=== PATIENT | female | born 1965 | race African-American/Black ===

== ENCOUNTER 2018-09-23 09:37 | Day surgery (SDC) | payer OTHER ==
[~2018-09-23] VITALS: Ht 170.2 cm; Wt 91.6 kg
[~2018-09-23 09:37] MED LIST: AMLO10TA4; BENA20TA77; CLOP75TA16; HCTZ PO; METO50TA95 PO; SIMV20TA2; VALS320T2 PO
[2018-09-23] MEDS ORDERED: NITROGLYCERIN 50MCG/ML 10ML VIAL (CATH LAB) IV ONE (10:11)
[2018-09-23] MEDS ORDERED: HEPARIN SODIUM 1,000 UNIT/1ML VIAL IV ONE (10:11)
[2018-09-23] MEDS ORDERED: NICARDIPINE 100MCG/ML 10ML VIAL (CATH LAB) IV ONE (10:11)
[2018-09-23] MEDS ORDERED: ASPI-1159 MT (10:12)
[2018-09-23] MEDS ORDERED: DIPHENHYDRAMINE 50MG/ML VIAL ONE (10:45)
[2018-09-23] MEDS ORDERED: MIDAZOLAM HCL 2 MG/2 ML VIAL ONE (10:45)
[2018-09-23] MEDS ORDERED: HYDROCORTISONE SOD SUCCINATE 250 MG/2 ML VIAL ONE (10:45)
[2018-09-23] MEDS ORDERED: FENTANYL CITRATE/PF 50MCG/ML 2ML VIAL ONE (10:46)
[2018-09-23] MEDS ORDERED: IODIXANOL 320MG/ML 100 ML BOTTLE IV ONE (10:46)
[2018-09-23] MEDS ORDERED: LIDOCAINE HCL 1% 20ML VIAL (Pyxis) INJ ONE (10:46)
[2018-09-23] MEDS ORDERED: FAMOTIDINE 20MG/2ML VIAL IV ONE (10:47)
== END 2018-09-23 17:10 | disposition home or self-care (01) ==
LOC: CCL 09:37
PROVIDERS: ATTEND Specialist
DX: I25.10 Atherosclerotic heart disease of native coronary artery without angina pectoris (principal); I10 Essential (primary) hypertension; E78.5 Hyperlipidemia, unspecified; Z87.891 Personal history of nicotine dependence
CPT/HCPCS: 93458; 99152; 99153; C1769; C1887; C1893; J1200; J1644; J1720; J2250; J3010; J3490; Q9967; G0500

== ENCOUNTER 2018-09-28 15:49 | Inpatient (IN) | payer OTHER ==
[~2018-09-28] VITALS: Ht 170.2 cm; Wt 102.1 kg
[~2018-09-28 15:49] MED LIST changes: +ASPI-1159 MT; -SIMV20TA2
[2018-09-28] MEDS ORDERED: ENOXAPARIN 80MG/0.8ML SYR SUBCUT ONE (17:15)
[2018-09-28] MEDS ORDERED: ASPIRIN 81MG TABLET PO NR (17:22)
[2018-09-28] MEDS ORDERED: MORPHINE SULFATE 4 MG/ML CPJ (NOT FOR IM USE) IV NR (17:23)
[2018-09-28] MEDS ORDERED: NITROGLYCERIN OINT 1GM/INCH UDPKT TD NR (17:24)
[2018-09-28 17:50] LABS: EOSINOPHILS % 4.3 % (0.0-5.0); HEMOGLOBIN. 13.9 g/dL (12.0-16.0); LYMPHOCYTES % 37.7 % (20.0-50.0); MEAN CORPUSCULAR VOLUME 85.4 fL (81.0-99.0); MEAN PLATELET VOLUME 9.2 fl (7.4-10.4); MONOCYTES % 7.1 % (2.0-8.0); NEUTROPHILS % 49.9 % (40.0-76.0); PLATELET 261 x1000/uL (130-400); RED BLOOD CELL COUNT 4.81 mill/uL (4.2-5.4); RED CELL DISTRIBUTION WIDTH 13.9 % (11.6-14.6)
[2018-09-28 17:53] LABS: CHLORIDE 104 mEq/L (98-107)
[2018-09-28 17:56] LABS: INR 0.9; PARTIAL THROMBOPLASTIN TIME 29.7 sec (23.4-31.0); PROTHROMBIN TIME 9.7 sec (9.6-11.0)
[2018-09-28] MEDS ORDERED: ACETAMINOPHEN 325MG TABLET PO PRN (19:30)
[2018-09-28] MEDS ORDERED: ALPRAZOLAM 0.25 MG TABLET PO PRN (19:30)
[2018-09-28] MEDS ORDERED: NITROGLYCERIN 0.4MG TABLET SL SL PRN (19:30)
[2018-09-28] MEDS ORDERED: ENOXAPARIN 100MG/ML SYR SUBCUT NR (20:00)
[2018-09-28] MEDS ORDERED: BISACODYL 10MG SUPP PR PRN (21:00)
[2018-09-28] MEDS ORDERED: DIPHENHYDRAMINE 25MG CAPSULE PO PRN (21:00)
[2018-09-28 23:00] VITALS: BP 140/74
[2018-09-28] MEDS ORDERED: DOCUSATE SODIUM 100MG CAPSULE PO SCH (23:30)
[2018-09-28] MEDS ORDERED: ASCORBIC ACID 500 MG TABLET PO NR (23:30)
[2018-09-29] VITALS (39 sets, daily range): BP systolic 73–159; BP diastolic 43–96
[2018-09-29] MEDS: ALLOPURINOL 300 MG TABLET PO SCH ×2 (00:05→05:25)
[2018-09-29] MEDS ORDERED: DEL NIDO ELECTROLYTE-S(PH 7.4) 1,000 ML IV PRN ×2 (00:15→06:00)
[2018-09-29 03:15] LABS: CLARITY URINE CLEAR (CLEAR); COLOR URINE YELLOW (YELLOW); KETONES URINE NEGATIVE (NEGATIVE); LEUKOCYTE ESTERASE URINE NEGATIVE (NEGATIVE); NITRITE URINE NEGATIVE (NEGATIVE); OCCULT BLOOD URINE NEGATIVE (NEGATIVE); PROTEIN URINE NEGATIVE (NEGATIVE); SPECIFIC GRAVITY URINE 1.011 (1.005-1.030); UROBILINOGEN URINE 0.2 E.U./dL (0.2-1.0)
[2018-09-29 04:21] LABS: BASOPHILS % 0.6 % (0.0-2.0); EOSINOPHILS % 4.1 % (0.0-5.0); HEMATOCRIT. 37.1 % (36.0-48.0); HEMOGLOBIN. 12.4 g/dL (12.0-16.0); LYMPHOCYTES % 36.4 % (20.0-50.0); MEAN CORPUSCULAR HEMOGLOBIN 28.6 pg (28.0-32.0); MEAN CORPUSCULAR VOLUME 85.7 fL (81.0-99.0); MEAN PLATELET VOLUME 9.4 fl (7.4-10.4); MONOCYTES % 7.8 % (2.0-8.0); NEUTROPHILS % 51.1 % (40.0-76.0); PLATELET 238 x1000/uL (130-400); RED BLOOD CELL COUNT 4.33 mill/uL (4.2-5.4); RED CELL DISTRIBUTION WIDTH 14.1 % (11.6-14.6)
[2018-09-29 04:28] LABS: CHLORIDE 104 mEq/L (98-107)
[2018-09-29 04:31] LABS: PROTHROMBIN TIME 10.2 sec (9.6-11.0)
[2018-09-29] MEDS ORDERED: POTASSIUM CHLORIDE INJ 40 MEQ in DEXT 5% WATER 250 ML IV NR (05:00)
[2018-09-29] MEDS ORDERED: CHLORHEXIDINE GLUCONATE 4% EXTERNAL USE TOP SCH ×2 (05:00)
[2018-09-29] MEDS ORDERED: ONDANSETRON HCL 4MG/2ML INJ IV PRN (05:00)
[2018-09-29] MEDS ORDERED: INSULIN REGULAR (DRIP) 100 UNITS in SODIUM CHLORIDE 0.9% 99 ML IV PRN (06:00)
[2018-09-29] MEDS ORDERED: EPINEPHRINE 4 MG in DEXT 5% WATER 246 ML IV PRN (06:00)
[2018-09-29] MEDS ORDERED: DOBUTAMINE HCL 250 MG in DEXT 5% WATER 230 ML IV PRN (06:00)
[2018-09-29] MEDS ORDERED: AMINOCAPROIC ACID 10,000 MG in SODIUM CHLORIDE 0.9% 460 ML IV PRN (06:00)
[2018-09-29] MEDS ORDERED: NICARDIPINE 40MG/200ML PREMIX 200 ML IV PRN (06:00)
[2018-09-29] MEDS ORDERED: CEFAZOLIN 2,000 MG in DEXT 5% WATER 100 ML IV PRN (06:00)
[2018-09-29] MEDS ORDERED: NOREPINEPHRINE 4 MG in DEXT 5% WATER 246 ML IV PRN (06:00)
[2018-09-29] MEDS ORDERED: PAPAVERINE HCL 180MG in SODIUM CHLORIDE 0.9% 24ML IV PRN (06:00)
[2018-09-29] MEDS ORDERED: AMINOCAPROIC ACID 250 MG/ML 20ML VIAL ONE ×2 (06:05→08:58)
[2018-09-29] MEDS ORDERED: POTASSIUM CHLORIDE 40MEQ/20ML INJ IV ONE (06:05)
[2018-09-29] MEDS ORDERED: ALBUMIN HUMAN 25GM/100ML (25%) IV ONE (06:06)
[2018-09-29] MEDS ORDERED: CALCIUM CHLORIDE 1GM/10ML SYR IV ONE ×2 (06:06→15:00)
[2018-09-29] MEDS ORDERED: HEPARIN 10,000 UNITS/ML VIAL ONE ×2 (06:07→06:08)
[2018-09-29] MEDS ORDERED: MANNITOL 20% 500 ML IV ONE (06:07)
[2018-09-29] MEDS ORDERED: HEPARIN 1000 UNITS/ML 10ML ONE ×3 (06:09→06:28)
[2018-09-29] MEDS ORDERED: SODIUM BICARBONATE 8.4% 1 MEQ/ML 50ML SYR IV ONE ×2 (06:20→15:01)
[2018-09-29] MEDS ORDERED: THROMBIN (BOVINE) 5000 UNITS/VIAL TOP ONE (06:26)
[2018-09-29] MEDS ORDERED: NORMAL SALINE 0.9% 10 ML SYR ONE (06:26)
[2018-09-29] MEDS ORDERED: METHYLENE BLUE 50 MG/10 ML AMP IV ONE (06:26)
[2018-09-29] MEDS ORDERED: BACITRACIN 50,000 UNITS/VIAL ONE (06:27)
[2018-09-29] MEDS ORDERED: NITROGLYCERIN 50MG PREMIX 250 ML IV ONE (06:28)
[2018-09-29] MEDS ORDERED: DOPAMINE 400MG/250ML PREMIX 250 ML IV ONE (06:28)
[2018-09-29] MEDS ORDERED: SEVOFLURANE 250 ML LIQUID INH ONE (06:28)
[2018-09-29] MEDS ORDERED: DOBUTAMINE 250MG PREMIX 250 ML IV ONE (06:28)
[2018-09-29] MEDS ORDERED: MILRINONE 20MG-DEXT 5% PREMIX 100 ML IV ONE ×2 (06:29→13:35)
[2018-09-29] MEDS ORDERED: BACITRACIN 15GM TUBE TOP ONE (06:30)
[2018-09-29] MEDS ORDERED: MIDAZOLAM HCL 2 MG/2 ML VIAL ONE (06:38)
[2018-09-29] MEDS ORDERED: ROCURONIUM BROMIDE 10MG/ML VIAL 5ML IV ONE ×2 (06:39→06:40)
[2018-09-29] MEDS ORDERED: PROPOFOL 10MG/ML 100ML 100 ML IV ONE (06:39)
[2018-09-29] MEDS ORDERED: PHENYLEPHRINE 10MG in DEXT 5% WATER 250ML IV ONE (06:45)
[2018-09-29] MEDS ORDERED: SUCCINYLCHOLINE CHLORIDE 200MG/10ML IV ONE (06:48)
[2018-09-29] MEDS ORDERED: MAGNESIUM SULFATE 5GM/10ML VIAL IV ONE (07:55)
[2018-09-29] MEDS ORDERED: LIDOCAINE HCL 2% 5ML SYRINGE IV ONE (08:09)
[2018-09-29] MEDS ORDERED: ESMOLOL 2500MG PREMIX 250 ML IV ONE (08:18)
[2018-09-29] MEDS ORDERED: FENTANYL CITRATE/PF 50MCG/ML 5ML VIAL ONE ×2 (08:19→09:36)
[2018-09-29] MEDS ORDERED: CEFAZOLIN SODIUM 1000MG/VIAL ONE (08:57)
[2018-09-29] MEDS ORDERED: DIPHENHYDRAMINE 50MG/ML VIAL ONE (09:05)
[2018-09-29] MEDS ORDERED: DEXAMETHASONE 4MG/ML 1ML VIAL ONE (09:25)
[2018-09-29] MEDS ORDERED: PROTAMINE SULFATE 10MG/ML VIAL 25ML IV ONE (09:31)
[2018-09-29] MEDS ORDERED: AMIODARONE HCL 50MG/ML 3ML VIAL IV ONE (10:54)
[2018-09-29 13:40] LABS: MEAN CORPUSCULAR HEMOGLOBIN 28.7 pg (28.0-32.0); MEAN CORPUSCULAR VOLUME 86.9 fL (81.0-99.0); MEAN PLATELET VOLUME 8.7 fl (7.4-10.4); PLATELET 104 x1000/uL (130-400); RED BLOOD CELL COUNT 2.38 mill/uL (4.2-5.4); RED CELL DISTRIBUTION WIDTH 14.1 % (11.6-14.6)
[2018-09-29 13:47] LABS: CHLORIDE 107 mEq/L (98-107)
[2018-09-29 13:49] LABS: INR 1.4; PARTIAL THROMBOPLASTIN TIME 34.7 sec (23.4-31.0); PROTHROMBIN TIME 14.1 sec (9.6-11.0)
[2018-09-29 13:52] LABS: PHOSPHORUS 2.4 mg/dL (2.5-4.9)
[2018-09-29 13:57] LABS: HEMATOCRIT. 20.7 % (36.0-48.0); HEMOGLOBIN. 6.8 g/dL (12.0-16.0)
[2018-09-29 14:19] LABS: PLATELET ESTIMATE SLIGHTLY DECREASED
[2018-09-29 14:28] LABS: BASOPHILS % 0.4 % (0.0-2.0); EOSINOPHILS % 0.6 % (0.0-5.0); HEMATOCRIT. 22.8 % (36.0-48.0); HEMOGLOBIN. 7.5 g/dL (12.0-16.0); LYMPHOCYTES % 9.4 % (20.0-50.0); MEAN CORPUSCULAR HEMOGLOBIN 28.5 pg (28.0-32.0); MEAN CORPUSCULAR VOLUME 87.1 fL (81.0-99.0); MEAN PLATELET VOLUME 9.2 fl (7.4-10.4); MONOCYTES % 4.7 % (2.0-8.0); NEUTROPHILS % 84.9 % (40.0-76.0); PLATELET 143 x1000/uL (130-400); RED BLOOD CELL COUNT 2.62 mill/uL (4.2-5.4)
[2018-09-29] MEDS ORDERED: ATROPINE SULFATE 1MG/10ML SYR ONE (14:48)
[2018-09-29] MEDS ORDERED: ALBUTEROL 90MCG/PUFF 17GM INHALER INH ONE (14:50)
[2018-09-29] MEDS ORDERED: SODIUM CHLORIDE 0.9% 500 ML IV PRN (15:22)
[2018-09-29] MEDS ORDERED: NOREPINEPHRINE 4 MG in DEXT 5% WATER 250 ML IV PRN (15:22)
[2018-09-29] MEDS ORDERED: DOPAMINE 400MG/250ML PREMIX 250 ML IV SCH (15:22)
[2018-09-29] MEDS ORDERED: CALCIUM CHLORIDE 5,000 MG in DEXT 5% WATER 500 ML IV PRN (15:30)
[2018-09-29] MEDS ORDERED: OXYCODONE HCL/ACETAMINOPHEN 5/325MG TABLET PO PRN (15:30)
[2018-09-29] MEDS ORDERED: ALBUMIN HUMAN 12.5G/250ML (5%) IV PRN (15:30)
[2018-09-29] MEDS ORDERED: MILRINONE 20MG-DEXT 5% PREMIX 100 ML IV SCH (16:00)
[2018-09-29] MEDS: MAGNESIUM HYDROXIDE 400MG/5ML 30ML UDC PO SCH ×3 (16:00→23:03)
[2018-09-29] MEDS ORDERED: FENTANYL CITRATE/PF 50MCG/ML 2ML VIAL ONE (16:19)
[2018-09-29 16:21] LABS: BG BASE EXCESS -5.1 mmol/L (-2.0-2.0); BG CARBOXYHEMOGLOBIN 0.3 % (0.5-1.5); BG DEOXYHEMOGLOBIN 2.8 % (0.0-5.0); BG FRACTION INSPIRED OXYGEN 100; BG HCO3 ACT 21.3 mmol/L (22.0-26.0); BG METHEMOGLOBIN 0.5 % (0.0-1.5); BG OXYGEN SATURATION 97.2 % (92.0-98.5); BG OXYHEMOGLOBIN 96.4 % (94.0-97.0); BG PCO2 45.2 mmHg (35.0-45.0); BG PH 7.291 (7.350-7.450); BG PO2 118.2 mmHg (75.0-100.0); BG SAMPLE SITE A-LINE; BG TIDAL VOLUME(mL) 600 mL; BG TOTAL HEMOGLOBIN 10.1 g/dL (12.0-18.0); BG VENT MODE VENT - A/C; BG VENT RATE 12 set
[2018-09-29] MEDS: BACITRACIN 15GM TUBE TOP SCH (16:26)
[2018-09-29] MEDS: DOCUSATE SODIUM 100MG CAPSULE PO SCH (16:26)
[2018-09-29] MEDS: IPRATROPIUM/ALBUTEROL 0.5-3(2.5)MG/3ML NEB HHN SCH ×3 (16:28→23:35)
[2018-09-29] MEDS: DEXT 5%/0.45% NACL 1000ML 1,000 ML IV SCH (16:28)
[2018-09-29] MEDS: FENTANYL CITRATE/PF 50MCG/ML 2ML VIAL IV PRN ×3 (16:29→22:23)
[2018-09-29] MEDS ORDERED: ALBUMIN HUMAN 12.5G/250ML (5%) IV ONE (16:30)
[2018-09-29] MEDS ORDERED: CEFAZOLIN 1000MG/50ML PREMIX IV ONE (16:30)
[2018-09-29] MEDS ORDERED: POTASSIUM CHLORIDE 10MEQ IN WATER 50ML PREMIX IV ONE (16:30)
[2018-09-29] MEDS ORDERED: MAGNESIUM SULFATE 1G IN DEXT 5% 100ML PREMIX IV ONE (16:30)
[2018-09-29] MEDS ORDERED: SODIUM BICARBONATE 8.4% 1 MEQ/ML 50ML SYR IV NR ×3 (16:45→21:15)
[2018-09-29] MEDS: CEFAZOLIN 1000MG PREMIX 50 ML IV SCH (17:00)
[2018-09-29 17:22] LABS: BASOPHILS % 0.2 % (0.0-2.0); EOSINOPHILS % 0.1 % (0.0-5.0); HEMATOCRIT. 29.7 % (36.0-48.0); LYMPHOCYTES % 12.9 % (20.0-50.0); MEAN CORPUSCULAR HEMOGLOBIN 29.1 pg (28.0-32.0); MEAN CORPUSCULAR VOLUME 86.8 fL (81.0-99.0); MEAN PLATELET VOLUME 9.3 fl (7.4-10.4); MONOCYTES % 4.8 % (2.0-8.0); PLATELET 152 x1000/uL (130-400); RED BLOOD CELL COUNT 3.42 mill/uL (4.2-5.4); RED CELL DISTRIBUTION WIDTH 14.7 % (11.6-14.6)
[2018-09-29 17:29] LABS: INR 1.1; PROTHROMBIN TIME 11.4 sec (9.6-11.0)
[2018-09-29] MEDS ORDERED: PROPOFOL 10MG/ML 100ML 100 ML IV PRN (17:30)
[2018-09-29 17:31] LABS: CHLORIDE 111 mEq/L (98-107)
[2018-09-29 17:31] LABS: BG BASE EXCESS -3.9 mmol/L (-2.0-2.0); BG CARBOXYHEMOGLOBIN 0.3 % (0.5-1.5); BG DEOXYHEMOGLOBIN 3.7 % (0.0-5.0); BG FRACTION INSPIRED OXYGEN 80; BG HCO3 ACT 21.7 mmol/L (22.0-26.0); BG OXYGEN SATURATION 96.3 % (92.0-98.5); BG PCO2 41.5 mmHg (35.0-45.0); BG PH 7.336 (7.350-7.450); BG PO2 93.9 mmHg (75.0-100.0); BG SAMPLE SITE A-LINE; BG TIDAL VOLUME(mL) 600 mL; BG TOTAL HEMOGLOBIN 11.2 g/dL (12.0-18.0); BG VENT MODE VENT - A/C; BG VENT RATE 12 set
[2018-09-29] MEDS ORDERED: INSULIN REGULAR (DRIP) 100 UNITS in SODIUM CHLORIDE 0.9% 100 ML IV SCH (18:36)
[2018-09-29] MEDS ORDERED: DEXTROSE 50% WATER 50ML SYRINGE IV PRN ×2 (18:45)
[2018-09-29] MEDS: BLOOD SUGAR DIAGNOSTIC STRIP TEST SCH ×5 (18:45→23:02)
[2018-09-29 19:01] LABS: BG BASE EXCESS -5.8 mmol/L (-2.0-2.0); BG CARBOXYHEMOGLOBIN 0.3 % (0.5-1.5); BG DEOXYHEMOGLOBIN 2.4 % (0.0-5.0); BG FRACTION INSPIRED OXYGEN 80; BG HCO3 ACT 19.2 mmol/L (22.0-26.0); BG METHEMOGLOBIN 0.3 % (0.0-1.5); BG OXYGEN SATURATION 97.6 % (92.0-98.5); BG PCO2 35.9 mmHg (35.0-45.0); BG PH 7.346 (7.350-7.450); BG PO2 112.6 mmHg (75.0-100.0); BG SAMPLE SITE A-LINE; BG TIDAL VOLUME(mL) 600 mL; BG TOTAL HEMOGLOBIN 11.1 g/dL (12.0-18.0); BG VENT MODE VENT - A/C; BG VENT RATE 12 set
[2018-09-29] MEDS ORDERED: KCL 10MEQ/50ML PREMIX 200 ML IV PRN (19:15)
[2018-09-29] MEDS ORDERED: KCL 10MEQ/50ML PREMIX 100 ML IV PRN (19:15)
[2018-09-29 20:38] LABS: BG BASE EXCESS -4.2 mmol/L (-2.0-2.0); BG CARBOXYHEMOGLOBIN 0.3 % (0.5-1.5); BG DEOXYHEMOGLOBIN 1.7 % (0.0-5.0); BG FRACTION INSPIRED OXYGEN 70; BG HCO3 ACT 20.4 mmol/L (22.0-26.0); BG METHEMOGLOBIN 0.6 % (0.0-1.5); BG OXYGEN SATURATION 98.3 % (92.0-98.5); BG OXYHEMOGLOBIN 97.4 % (94.0-97.0); BG PCO2 35.9 mmHg (35.0-45.0); BG PH 7.373 (7.350-7.450); BG PIP 28 cmH2O; BG PO2 170.3 mmHg (75.0-100.0); BG SAMPLE SITE A-LINE; BG TIDAL VOLUME(mL) 600 mL; BG TOTAL HEMOGLOBIN 10.6 g/dL (12.0-18.0); BG VENT MODE VENT - A/C; BG VENT RATE 12 set
[2018-09-29] MEDS: ACETAMINOPHEN 650MG/20.3ML UDC PO PRN (21:23)
[2018-09-29 21:31] LABS: HEMATOCRIT. 30.7 % (36.0-48.0); HEMOGLOBIN. 10.2 g/dL (12.0-16.0); MEAN CORPUSCULAR HEMOGLOBIN 28.9 pg (28.0-32.0); MEAN CORPUSCULAR VOLUME 86.8 fL (81.0-99.0); MEAN PLATELET VOLUME 9.8 fl (7.4-10.4); PLATELET 153 x1000/uL (130-400); RED BLOOD CELL COUNT 3.54 mill/uL (4.2-5.4); RED CELL DISTRIBUTION WIDTH 14.7 % (11.6-14.6)
[2018-09-29 21:34] LABS: PARTIAL THROMBOPLASTIN TIME 36.7 sec (23.4-31.0); PROTHROMBIN TIME 10.8 sec (9.6-11.0)
[2018-09-29 21:39] LABS: BG BASE EXCESS 0.3 mmol/L (-2.0-2.0); BG CARBOXYHEMOGLOBIN 0.3 % (0.5-1.5); BG DEOXYHEMOGLOBIN 1.9 % (0.0-5.0); BG FRACTION INSPIRED OXYGEN 60; BG HCO3 ACT 24.2 mmol/L (22.0-26.0); BG METHEMOGLOBIN 0.3 % (0.0-1.5); BG OXYGEN SATURATION 98.1 % (92.0-98.5); BG OXYHEMOGLOBIN 97.5 % (94.0-97.0); BG PCO2 36.4 mmHg (35.0-45.0); BG PH 7.441 (7.350-7.450); BG PIP 28 cmH2O; BG PO2 152.3 mmHg (75.0-100.0); BG SAMPLE SITE A-LINE; BG TIDAL VOLUME(mL) 600 mL; BG TOTAL HEMOGLOBIN 10.4 g/dL (12.0-18.0); BG VENT MODE VENT - A/C; BG VENT RATE 12 set
[2018-09-29 21:47] LABS: CHLORIDE 113 mEq/L (98-107)
[2018-09-29 22:13] LABS: PLATELET ESTIMATE NORMAL
[2018-09-29 22:35] LABS: BG BASE EXCESS 1.1 mmol/L (-2.0-2.0); BG CARBOXYHEMOGLOBIN 0.3 % (0.5-1.5); BG DEOXYHEMOGLOBIN 2.5 % (0.0-5.0); BG FRACTION INSPIRED OXYGEN 50; BG HCO3 ACT 25.6 mmol/L (22.0-26.0); BG METHEMOGLOBIN 0.3 % (0.0-1.5); BG OXYGEN SATURATION 97.5 % (92.0-98.5); BG OXYHEMOGLOBIN 96.9 % (94.0-97.0); BG PCO2 40.5 mmHg (35.0-45.0); BG PH 7.419 (7.350-7.450); BG PIP 28 cmH2O; BG PO2 112.5 mmHg (75.0-100.0); BG SAMPLE SITE A-LINE; BG TIDAL VOLUME(mL) 600 mL; BG TOTAL HEMOGLOBIN 10.7 g/dL (12.0-18.0); BG VENT MODE VENT - A/C; BG VENT RATE 12 set
[2018-09-29] MEDS: KCL 10MEQ/50ML PREMIX 150 ML IV PRN (23:14)
[2018-09-29] MEDS: MORPHINE SULFATE 4 MG/ML CPJ (NOT FOR IM USE) IV PRN (23:49)
[2018-09-30] VITALS (63 sets, daily range): BP systolic 47–189; BP diastolic 25–96
[2018-09-30] MEDS: BLOOD SUGAR DIAGNOSTIC STRIP TEST SCH ×23 (00:11→23:16)
[2018-09-30 00:27] LABS: HEMATOCRIT. 29.6 % (36.0-48.0); HEMOGLOBIN. 10.1 g/dL (12.0-16.0); MEAN CORPUSCULAR HEMOGLOBIN 29.1 pg (28.0-32.0); MEAN CORPUSCULAR VOLUME 85.6 fL (81.0-99.0); MEAN PLATELET VOLUME 9.1 fl (7.4-10.4); PLATELET 140 x1000/uL (130-400); RED BLOOD CELL COUNT 3.46 mill/uL (4.2-5.4); RED CELL DISTRIBUTION WIDTH 14.7 % (11.6-14.6)
[2018-09-30 00:29] LABS: CHLORIDE 115 mEq/L (98-107)
[2018-09-30 00:33] LABS: PARTIAL THROMBOPLASTIN TIME 30.3 sec (23.4-31.0); PROTHROMBIN TIME 10.7 sec (9.6-11.0)
[2018-09-30] MEDS ORDERED: KCL 10MEQ/50ML PREMIX 50 ML IV NR ×2 (00:45→06:00)
[2018-09-30 00:52] LABS: PLATELET ESTIMATE NORMAL
[2018-09-30] MEDS ORDERED: MAGNESIUM 1 G PREMIX 100 ML IV NR ×2 (01:00→02:00)
[2018-09-30] MEDS ORDERED: ALBUMIN HUMAN 12.5G/250ML (5%) IV NR (01:30)
[2018-09-30] MEDS ORDERED: KCL 20MEQ/100ML PREMIX 100 ML IV NR (02:00)
[2018-09-30] MEDS: CEFAZOLIN 1000MG PREMIX 50 ML IV SCH ×3 (02:10→17:20)
[2018-09-30] MEDS: INSULIN REGULAR (DRIP) 100 UNITS in SODIUM CHLORIDE 0.9% 99 ML IV SCH (02:23)
[2018-09-30] MEDS: FENTANYL CITRATE/PF 50MCG/ML 2ML VIAL IV PRN ×2 (03:09→09:52)
[2018-09-30] MEDS ORDERED: BLOOD SUGAR DIAGNOSTIC STRIP TEST SCH (04:00)
[2018-09-30] MEDS: MAGNESIUM HYDROXIDE 400MG/5ML 30ML UDC PO SCH ×4 (04:59→16:00)
[2018-09-30] MEDS: MORPHINE SULFATE 4 MG/ML CPJ (NOT FOR IM USE) IV PRN ×2 (05:00→07:26)
[2018-09-30 05:04] LABS: BG BASE EXCESS 3.2 mmol/L (-2.0-2.0); BG CARBOXYHEMOGLOBIN 0.3 % (0.5-1.5); BG DEOXYHEMOGLOBIN 3.2 % (0.0-5.0); BG FRACTION INSPIRED OXYGEN 40; BG HCO3 ACT 25.6 mmol/L (22.0-26.0); BG METHEMOGLOBIN 0.3 % (0.0-1.5); BG OXYGEN SATURATION 96.8 % (92.0-98.5); BG OXYHEMOGLOBIN 96.2 % (94.0-97.0); BG PCO2 31.5 mmHg (35.0-45.0); BG PH 7.528 (7.350-7.450); BG PIP 33 cmH2O; BG PO2 86.3 mmHg (75.0-100.0); BG SAMPLE SITE A-LINE; BG TIDAL VOLUME(mL) 600 mL; BG TOTAL HEMOGLOBIN 10.4 g/dL (12.0-18.0); BG VENT MODE VENT - A/C; BG VENT RATE 12 set
[2018-09-30 05:10] LABS: HEMOGLOBIN. 9.9 g/dL (12.0-16.0); LYMPHOCYTES % 8.2 % (20.0-50.0); MEAN CORPUSCULAR HEMOGLOBIN 29.1 pg (28.0-32.0); MEAN CORPUSCULAR VOLUME 85.3 fL (81.0-99.0); MEAN PLATELET VOLUME 9.3 fl (7.4-10.4); MONOCYTES % 8.7 % (2.0-8.0); NEUTROPHILS % 83.1 % (40.0-76.0); PLATELET 136 x1000/uL (130-400); RED BLOOD CELL COUNT 3.39 mill/uL (4.2-5.4); RED CELL DISTRIBUTION WIDTH 14.4 % (11.6-14.6)
[2018-09-30 05:12] LABS: CHLORIDE 113 mEq/L (98-107)
[2018-09-30 05:18] LABS: PHOSPHORUS 2.6 mg/dL (2.5-4.9)
[2018-09-30 05:19] LABS: LDL CHOLESTEROL 41 mg/dL (5-100)
[2018-09-30 05:20] LABS: HDL CHOLESTEROL 27 mg/dL (40-59)
[2018-09-30] MEDS ORDERED: MAGNESIUM 2 G PREMIX 50 ML IV NR (07:00)
[2018-09-30 07:16] LABS: BG BASE EXCESS 3.3 mmol/L (-2.0-2.0); BG CARBOXYHEMOGLOBIN 0.3 % (0.5-1.5); BG DEOXYHEMOGLOBIN 2.3 % (0.0-5.0); BG FRACTION INSPIRED OXYGEN 40; BG HCO3 ACT 26.5 mmol/L (22.0-26.0); BG METHEMOGLOBIN 0.2 % (0.0-1.5); BG OXYGEN SATURATION 97.7 % (92.0-98.5); BG OXYHEMOGLOBIN 97.2 % (94.0-97.0); BG PCO2 35.1 mmHg (35.0-45.0); BG PH 7.496 (7.350-7.450); BG PO2 112.7 mmHg (75.0-100.0); BG SAMPLE SITE A-LINE; BG TIDAL VOLUME(mL) 600 mL; BG TOTAL HEMOGLOBIN 9.9 g/dL (12.0-18.0); BG VENT MODE VENT - SIMV; BG VENT RATE 12 set
[2018-09-30] MEDS: KCL 10MEQ/50ML PREMIX 150 ML IV PRN ×2 (07:57→07:58)
[2018-09-30] MEDS: IPRATROPIUM/ALBUTEROL 0.5-3(2.5)MG/3ML NEB HHN SCH ×4 (07:58→21:31)
[2018-09-30] MEDS ORDERED: MAGNESIUM SULFATE 3 GM in DEXT 5% WATER 100 ML IV PRN (08:00)
[2018-09-30] MEDS ORDERED: MAGNESIUM 2 G PREMIX 50 ML IV PRN (08:00)
[2018-09-30] MEDS ORDERED: MAGNESIUM 1 G PREMIX 100 ML IV PRN (08:00)
[2018-09-30] MEDS: DEXT 5%/0.45% NACL 1000ML 1,000 ML IV SCH ×2 (08:02→16:50)
[2018-09-30] MEDS: DOCUSATE SODIUM 100MG CAPSULE PO SCH ×2 (09:00→17:20)
[2018-09-30] MEDS: BACITRACIN 15GM TUBE TOP SCH ×2 (09:00→17:00)
[2018-09-30 09:33] LABS: BG OXYGEN SATURATION 97.4 % (92.0-98.5)
[2018-09-30] MEDS ORDERED: RACEPINEPHRINE 2.25% 0.5ML NEB VIAL HHN PRN (10:00)
[2018-09-30] MEDS ORDERED: FUROSEMIDE 40MG/4ML VIAL IVP NR ×2 (10:15→21:08)
[2018-09-30] MEDS ORDERED: NICARDIPINE 50 MG in SODIUM CHLORIDE 0.9% 230 ML IV PRN (11:00)
[2018-09-30] MEDS: HYDROMORPHONE HCL/PF 2MG/ML CPJ IM PRN ×4 (11:08→22:10)
[2018-09-30] MEDS ORDERED: NITROPRUSSIDE 50 MG in SODIUM CHLORIDE 0.9% 250 ML IV PRN (11:30)
[2018-09-30 12:36] LABS: BG BASE EXCESS 1.8 mmol/L (-2.0-2.0); BG CARBOXYHEMOGLOBIN 0.3 % (0.5-1.5); BG DEOXYHEMOGLOBIN 2.9 % (0.0-5.0); BG FRACTION INSPIRED OXYGEN 40; BG HCO3 ACT 27.1 mmol/L (22.0-26.0); BG METHEMOGLOBIN 0.3 % (0.0-1.5); BG OXYGEN SATURATION 97.1 % (92.0-98.5); BG OXYHEMOGLOBIN 96.5 % (94.0-97.0); BG PCO2 45.9 mmHg (35.0-45.0); BG PH 7.389 (7.350-7.450); BG PO2 112.2 mmHg (75.0-100.0); BG SAMPLE SITE A-LINE; BG TOTAL HEMOGLOBIN 9.9 g/dL (12.0-18.0); BG VENT MODE MASK - AEROSOL
[2018-09-30 13:40] LABS: BG SAMPLE SITE A-LINE; BG VENT MODE VENT - CPAP
[2018-09-30 13:42] LABS: BG FRACTION INSPIRED OXYGEN 40; BG PEEP (cmH2O) 5 cmH2O
[2018-09-30 13:43] LABS: BG PH 7.445 (7.350-7.450)
[2018-09-30 13:44] LABS: BG PCO2 39.8 mmHg (35.0-45.0); BG PO2 105.5 mmHg (75.0-100.0)
[2018-09-30 13:45] LABS: BG BASE EXCESS 2.5 mmol/L (-2.0-2.0); BG HCO3 ACT 26.7 mmol/L (22.0-26.0)
[2018-09-30 13:46] LABS: BG OXYHEMOGLOBIN 96.9 % (94.0-97.0); BG TOTAL HEMOGLOBIN 10.5 g/dL (12.0-18.0)
[2018-09-30 13:47] LABS: BG CARBOXYHEMOGLOBIN 0.3 % (0.5-1.5)
[2018-09-30 13:48] LABS: BG DEOXYHEMOGLOBIN 2.6 % (0.0-5.0); BG METHEMOGLOBIN 0.2 % (0.0-1.5)
[2018-09-30] MEDS: ASPIRIN 81MG TABLET PO SCH (17:20)
[2018-09-30] MEDS: CLOPIDOGREL 75MG TABLET PO SCH (17:20)
[2018-09-30] MEDS: IRON SUCROSE COMPLEX 100 MG/5 ML ML IV SCH (17:33)
[2018-09-30] MEDS: ATORVASTATIN CALCIUM 40MG TABLET PO SCH (20:15)
[2018-09-30] MEDS ORDERED: EPOETIN ALFA 4000UNITS/ML VIAL SUBCUT NR (21:00)
[2018-10-01] VITALS (49 sets, daily range): BP systolic 95–147; BP diastolic 52–84
[2018-10-01] MEDS: ACETAMINOPHEN 650MG/20.3ML UDC PO PRN (01:00)
[2018-10-01] MEDS: BLOOD SUGAR DIAGNOSTIC STRIP TEST SCH ×23 (01:00→23:00)
[2018-10-01] MEDS: HYDROMORPHONE HCL/PF 2MG/ML CPJ IM PRN ×3 (02:09→15:00)
[2018-10-01] MEDS: INSULIN REGULAR (DRIP) 100 UNITS in SODIUM CHLORIDE 0.9% 99 ML IV SCH (04:07)
[2018-10-01 04:22] LABS: BASOPHILS % 0.6 % (0.0-2.0); EOSINOPHILS % 0.1 % (0.0-5.0); HEMATOCRIT. 28.1 % (36.0-48.0); HEMOGLOBIN. 9.3 g/dL (12.0-16.0); LYMPHOCYTES % 10.2 % (20.0-50.0); MEAN CORPUSCULAR VOLUME 87.9 fL (81.0-99.0); MEAN PLATELET VOLUME 9.8 fl (7.4-10.4); MONOCYTES % 9.1 % (2.0-8.0); PLATELET 155 x1000/uL (130-400); RED CELL DISTRIBUTION WIDTH 15.4 % (11.6-14.6)
[2018-10-01 04:32] LABS: PHOSPHORUS 5.8 mg/dL (2.5-4.9)
[2018-10-01] MEDS: IPRATROPIUM/ALBUTEROL 0.5-3(2.5)MG/3ML NEB HHN SCH ×5 (04:45→20:37)
[2018-10-01] MEDS ORDERED: MAGNESIUM 2 G PREMIX 50 ML IV SCH (05:00)
[2018-10-01] MEDS ORDERED: KCL 20MEQ/100ML PREMIX 100 ML IV SCH (05:00)
[2018-10-01] MEDS ORDERED: ALBUMIN HUMAN 12.5G/250ML (5%) IV SCH (05:30)
[2018-10-01] MEDS ORDERED: FUROSEMIDE 40MG/4ML VIAL IVP SCH (05:30)
[2018-10-01 05:42] LABS: BG BASE EXCESS 2.7 mmol/L (-2.0-2.0); BG CARBOXYHEMOGLOBIN 0.2 % (0.5-1.5); BG DEOXYHEMOGLOBIN 6.2 % (0.0-5.0); BG FRACTION INSPIRED OXYGEN 40; BG HCO3 ACT 27.2 mmol/L (22.0-26.0); BG METHEMOGLOBIN 0.3 % (0.0-1.5); BG OXYGEN SATURATION 93.8 % (92.0-98.5); BG OXYHEMOGLOBIN 93.3 % (94.0-97.0); BG PCO2 41.7 mmHg (35.0-45.0); BG PH 7.432 (7.350-7.450); BG PO2 67.9 mmHg (75.0-100.0); BG SAMPLE SITE LEFT RADIAL; BG TOTAL HEMOGLOBIN 9.1 g/dL (12.0-18.0); BG VENT MODE MASK - AEROSOL
[2018-10-01] MEDS: ASPIRIN 81MG TABLET PO SCH (10:08)
[2018-10-01] MEDS: DOCUSATE SODIUM 100MG CAPSULE PO SCH ×2 (10:08→17:13)
[2018-10-01] MEDS: CLOPIDOGREL 75MG TABLET PO SCH (10:08)
[2018-10-01] MEDS: BACITRACIN 15GM TUBE TOP SCH ×2 (10:10→17:12)
[2018-10-01] MEDS: DEXT 5%/0.45% NACL 1000ML 1,000 ML IV SCH (11:26)
[2018-10-01] MEDS: IRON SUCROSE COMPLEX 100 MG/5 ML ML IV SCH (17:12)
[2018-10-01] MEDS ORDERED: FUROSEMIDE 40MG/4ML VIAL IVP NR (17:45)
[2018-10-01] MEDS: OXYCODONE HCL/ACETAMINOPHEN 5/325MG TABLET PO PRN ×2 (18:50→22:11)
[2018-10-01] MEDS: ATORVASTATIN CALCIUM 40MG TABLET PO SCH (20:45)
[2018-10-01] MEDS: MAGNESIUM HYDROXIDE 400MG/5ML 30ML UDC PO SCH (20:45)
[2018-10-01] MEDS: METOPROLOL TARTRATE 25MG TABLET PO SCH (21:00)
[2018-10-02] VITALS (29 sets, daily range): BP systolic 111–156; BP diastolic 68–105
[2018-10-02] MEDS: IPRATROPIUM/ALBUTEROL 0.5-3(2.5)MG/3ML NEB HHN SCH ×6 (00:06→20:55)
[2018-10-02] MEDS: MAGNESIUM HYDROXIDE 400MG/5ML 30ML UDC PO SCH ×4 (00:22→12:30)
[2018-10-02] MEDS: BLOOD SUGAR DIAGNOSTIC STRIP TEST SCH ×17 (00:45→20:42)
[2018-10-02] MEDS: HYDROMORPHONE HCL/PF 2MG/ML CPJ IM PRN (03:45)
[2018-10-02 04:29] LABS: CHLORIDE 108 mEq/L (98-107)
[2018-10-02] MEDS ORDERED: KCL 10MEQ/50ML PREMIX 50 ML IV SCH ×3 (05:00→07:00)
[2018-10-02] MEDS: MAGNESIUM 1 G PREMIX 100 ML IV SCH ×2 (05:15→06:31)
[2018-10-02 05:58] LABS: BASOPHILS % 0.3 % (0.0-2.0); EOSINOPHILS % 0.7 % (0.0-5.0); HEMATOCRIT. 24.2 % (36.0-48.0); HEMOGLOBIN. 8.1 g/dL (12.0-16.0); LYMPHOCYTES % 14.5 % (20.0-50.0); MEAN CORPUSCULAR HEMOGLOBIN 29.1 pg (28.0-32.0); MEAN CORPUSCULAR VOLUME 87.2 fL (81.0-99.0); MEAN PLATELET VOLUME 9.5 fl (7.4-10.4); MONOCYTES % 7.5 % (2.0-8.0); PLATELET 152 x1000/uL (130-400); RED BLOOD CELL COUNT 2.77 mill/uL (4.2-5.4); RED CELL DISTRIBUTION WIDTH 15.1 % (11.6-14.6)
[2018-10-02] MEDS ORDERED: MAGNESIUM 1 G PREMIX 100 ML IV SCH (06:00)
[2018-10-02] MEDS ORDERED: KETOROLAC 15MG/ML VIAL IV NR (07:30)
[2018-10-02] MEDS: METOPROLOL TARTRATE 25MG TABLET PO SCH ×2 (08:24→20:34)
[2018-10-02] MEDS: ASPIRIN 81MG TABLET PO SCH (08:24)
[2018-10-02] MEDS: CLOPIDOGREL 75MG TABLET PO SCH (08:24)
[2018-10-02] MEDS: DOCUSATE SODIUM 100MG CAPSULE PO SCH (08:24)
[2018-10-02] MEDS ORDERED: LIDOCAINE HCL 1% 20ML VIAL (Pyxis) INJ ONE (08:42)
[2018-10-02] MEDS: BACITRACIN 15GM TUBE TOP SCH ×2 (09:54→18:02)
[2018-10-02] MEDS ORDERED: DEXT 5%/0.45% NACL 1000ML 1,000 ML IV SCH (10:00)
[2018-10-02] MEDS ORDERED: TRAMADOL HCL/ACETAMINOPHEN 37.5/325MG TABLET PO PRN (14:15)
[2018-10-02] MEDS: DOCUSATE SODIUM 250MG CAPSULE PO SCH ×2 (14:15→17:00)
[2018-10-02] MEDS: FUROSEMIDE 40MG TABLET PO SCH ×2 (15:50→23:00)
[2018-10-02] MEDS ORDERED: DEXTROSE 50% WATER 50ML SYRINGE IV PRN (16:30)
[2018-10-02] MEDS: INSULIN LISPRO 100 UNITS/ML SUBCUT SCH ×2 (17:50→20:41)
[2018-10-02] MEDS ORDERED: BLOOD SUGAR DIAGNOSTIC STRIP TEST SCH (17:50)
[2018-10-02] MEDS: IRON SUCROSE COMPLEX 100 MG/5 ML ML IV SCH (18:02)
[2018-10-02] MEDS: OXYCODONE HCL/ACETAMINOPHEN 5/325MG TABLET PO PRN ×2 (18:02→23:53)
[2018-10-02] MEDS: MORPHINE SULFATE 4 MG/ML CPJ (NOT FOR IM USE) IV PRN (20:34)
[2018-10-02] MEDS: FAMOTIDINE 20MG TABLET PO SCH (20:34)
[2018-10-02] MEDS: ATORVASTATIN CALCIUM 40MG TABLET PO SCH (20:34)
[2018-10-03] VITALS (23 sets, daily range): BP systolic 121–174; BP diastolic 44–119
[2018-10-03] MEDS: IPRATROPIUM/ALBUTEROL 0.5-3(2.5)MG/3ML NEB HHN SCH ×6 (00:26→20:30)
[2018-10-03] MEDS ORDERED: FUROSEMIDE 40MG/4ML VIAL IVP ONE (01:30)
[2018-10-03 06:29] LABS: BASOPHILS % 0.2 % (0.0-2.0); HEMATOCRIT. 21.3 % (36.0-48.0); HEMOGLOBIN. 7.1 g/dL (12.0-16.0); MEAN CORPUSCULAR HEMOGLOBIN 29.1 pg (28.0-32.0); MEAN CORPUSCULAR VOLUME 87.2 fL (81.0-99.0); MEAN PLATELET VOLUME 8.9 fl (7.4-10.4); MONOCYTES % 5.2 % (2.0-8.0); NEUTROPHILS % 76.6 % (40.0-76.0); PLATELET 183 x1000/uL (130-400); RED BLOOD CELL COUNT 2.45 mill/uL (4.2-5.4); RED CELL DISTRIBUTION WIDTH 14.4 % (11.6-14.6)
[2018-10-03] MEDS: FUROSEMIDE 40MG TABLET PO SCH ×2 (06:44→08:58)
[2018-10-03] MEDS: BLOOD SUGAR DIAGNOSTIC STRIP TEST SCH ×4 (06:45→19:57)
[2018-10-03] MEDS: INSULIN LISPRO 100 UNITS/ML SUBCUT SCH ×4 (07:20→20:13)
[2018-10-03 07:21] LABS: CHLORIDE 104 mEq/L (98-107)
[2018-10-03] MEDS: FAMOTIDINE 20MG TABLET PO SCH ×2 (08:58→21:15)
[2018-10-03] MEDS: CLOPIDOGREL 75MG TABLET PO SCH (08:58)
[2018-10-03] MEDS: ASPIRIN 81MG TABLET PO SCH (08:58)
[2018-10-03] MEDS: METOPROLOL TARTRATE 25MG TABLET PO SCH (08:58)
[2018-10-03] MEDS: DOCUSATE SODIUM 250MG CAPSULE PO SCH ×2 (08:59→16:24)
[2018-10-03] MEDS ORDERED: KETOROLAC 15MG/ML VIAL IV SCH (10:15)
[2018-10-03] MEDS ORDERED: POTASSIUM CHLORIDE 20MEQ TABLET SR PO SCH (10:45)
[2018-10-03] MEDS: BACITRACIN 15GM TUBE TOP SCH ×2 (12:45→17:10)
[2018-10-03] MEDS: CLONIDINE 0.1MG TABLET PO PRN (17:31)
[2018-10-03] MEDS: OXYCODONE HCL/ACETAMINOPHEN 5/325MG TABLET PO PRN (17:38)
[2018-10-03] MEDS ORDERED: FUROSEMIDE 40MG/4ML VIAL IVP NR (17:45)
[2018-10-03] MEDS: ATORVASTATIN CALCIUM 40MG TABLET PO SCH (21:15)
[2018-10-03] MEDS: METOPROLOL TARTRATE 50MG TABLET PO SCH (21:15)
[2018-10-03] MEDS: MORPHINE SULFATE 4 MG/ML CPJ (NOT FOR IM USE) IV PRN (22:22)
[2018-10-04] VITALS (13 sets, daily range): BP systolic 125–164; BP diastolic 81–108
[2018-10-04] MEDS: IPRATROPIUM/ALBUTEROL 0.5-3(2.5)MG/3ML NEB HHN SCH ×6 (00:59→21:42)
[2018-10-04 01:46] LABS: BASOPHILS % 0.5 % (0.0-2.0); EOSINOPHILS % 3.2 % (0.0-5.0); HEMATOCRIT. 27.6 % (36.0-48.0); HEMOGLOBIN. 9.5 g/dL (12.0-16.0); LYMPHOCYTES % 25.7 % (20.0-50.0); MEAN CORPUSCULAR HEMOGLOBIN 29.7 pg (28.0-32.0); MEAN CORPUSCULAR VOLUME 86.7 fL (81.0-99.0); MEAN PLATELET VOLUME 8.5 fl (7.4-10.4); MONOCYTES % 5.7 % (2.0-8.0); NEUTROPHILS % 64.9 % (40.0-76.0); PLATELET 197 x1000/uL (130-400); RED BLOOD CELL COUNT 3.19 mill/uL (4.2-5.4); RED CELL DISTRIBUTION WIDTH 14.2 % (11.6-14.6)
[2018-10-04 01:58] LABS: CHLORIDE 103 mEq/L (98-107)
[2018-10-04] MEDS: BLOOD SUGAR DIAGNOSTIC STRIP TEST SCH ×4 (05:47→21:05)
[2018-10-04] MEDS: INSULIN LISPRO 100 UNITS/ML SUBCUT SCH ×4 (07:20→21:00)
[2018-10-04] MEDS: DOCUSATE SODIUM 250MG CAPSULE PO SCH ×2 (09:00→17:00)
[2018-10-04] MEDS ORDERED: POTASSIUM CHLORIDE 20MEQ TABLET SR PO NR (09:15)
[2018-10-04] MEDS: FAMOTIDINE 20MG TABLET PO SCH ×2 (09:34→21:03)
[2018-10-04] MEDS: MORPHINE SULFATE 4 MG/ML CPJ (NOT FOR IM USE) IV PRN (09:34)
[2018-10-04] MEDS: METOPROLOL TARTRATE 50MG TABLET PO SCH ×2 (09:34→21:05)
[2018-10-04] MEDS: ASPIRIN 81MG TABLET PO SCH (09:34)
[2018-10-04] MEDS: CLOPIDOGREL 75MG TABLET PO SCH (09:35)
[2018-10-04] MEDS: BACITRACIN 15GM TUBE TOP SCH ×2 (09:35→17:20)
[2018-10-04] MEDS: HYDROMORPHONE HCL/PF 2MG/ML CPJ IM PRN (16:00)
[2018-10-04] MEDS: ATORVASTATIN CALCIUM 40MG TABLET PO SCH (21:03)
[2018-10-04] MEDS: OXYCODONE HCL/ACETAMINOPHEN 5/325MG TABLET PO PRN (22:46)
[2018-10-04] MEDS: CLONIDINE 0.1MG TABLET PO PRN (23:14)
[2018-10-05] VITALS (13 sets, daily range): BP systolic 103–166; BP diastolic 44–111
[2018-10-05] MEDS: IPRATROPIUM/ALBUTEROL 0.5-3(2.5)MG/3ML NEB HHN SCH ×4 (00:54→20:06)
[2018-10-05] MEDS: BLOOD SUGAR DIAGNOSTIC STRIP TEST SCH ×4 (06:12→20:34)
[2018-10-05 06:27] LABS: HEMATOCRIT 27.8 % (36.0-48.0); HEMOGLOBIN 9.4 g/dL (12.0-16.0); MEAN CORPUSCULAR HEMOGLOBIN 29.6 pg (28.0-32.0); MEAN CORPUSCULAR VOLUME 87.4 fL (81.0-99.0); PLATELET 252 x1000/uL (130-400); RED BLOOD CELL COUNT 3.18 mill/uL (4.2-5.4); RED CELL DISTRIBUTION WIDTH 13.8 % (11.6-14.6)
[2018-10-05] MEDS: INSULIN LISPRO 100 UNITS/ML SUBCUT SCH ×4 (07:06→20:34)
[2018-10-05 07:30] LABS: CHLORIDE 103 mEq/L (98-107)
[2018-10-05] MEDS: OXYCODONE HCL/ACETAMINOPHEN 5/325MG TABLET PO PRN ×2 (07:30→20:30)
[2018-10-05] MEDS: METOPROLOL TARTRATE 50MG TABLET PO SCH ×2 (08:55→20:31)
[2018-10-05] MEDS: CLOPIDOGREL 75MG TABLET PO SCH (08:55)
[2018-10-05] MEDS: DOCUSATE SODIUM 250MG CAPSULE PO SCH ×2 (08:55→17:16)
[2018-10-05] MEDS: FAMOTIDINE 20MG TABLET PO SCH ×2 (08:55→20:29)
[2018-10-05] MEDS: ASPIRIN 81MG TABLET PO SCH (08:55)
[2018-10-05] MEDS: BACITRACIN 15GM TUBE TOP SCH ×2 (09:00→17:17)
[2018-10-05] MEDS ORDERED: POTASSIUM CHLORIDE 20MEQ TABLET SR PO SCH (10:45)
[2018-10-05] MEDS ORDERED: FUROSEMIDE 40MG/4ML VIAL IVP NR (12:00)
[2018-10-05] MEDS ORDERED: KETOROLAC 15MG/ML VIAL IV NR (12:00)
[2018-10-05] MEDS ORDERED: FUROSEMIDE 40MG/4ML VIAL IVP SCH (18:00)
[2018-10-05] MEDS: ATORVASTATIN CALCIUM 40MG TABLET PO SCH (20:29)
[2018-10-06] VITALS (13 sets, daily range): BP systolic 122–169; BP diastolic 69–112
[2018-10-06] MEDS: OXYCODONE HCL/ACETAMINOPHEN 5/325MG TABLET PO PRN ×4 (03:52→20:12)
[2018-10-06] MEDS: IPRATROPIUM/ALBUTEROL 0.5-3(2.5)MG/3ML NEB HHN SCH ×6 (04:37→19:45)
[2018-10-06] MEDS: BLOOD SUGAR DIAGNOSTIC STRIP TEST SCH ×4 (05:43→20:13)
[2018-10-06 06:48] LABS: BASOPHILS % 0.2 % (0.0-2.0); EOSINOPHILS % 2.8 % (0.0-5.0); HEMATOCRIT. 27.7 % (36.0-48.0); HEMOGLOBIN. 9.4 g/dL (12.0-16.0); LYMPHOCYTES % 15.9 % (20.0-50.0); MEAN CORPUSCULAR HEMOGLOBIN 29.7 pg (28.0-32.0); MEAN CORPUSCULAR VOLUME 87.5 fL (81.0-99.0); MEAN PLATELET VOLUME 8.3 fl (7.4-10.4); MONOCYTES % 7.7 % (2.0-8.0); NEUTROPHILS % 73.4 % (40.0-76.0); PLATELET 289 x1000/uL (130-400); RED BLOOD CELL COUNT 3.17 mill/uL (4.2-5.4); RED CELL DISTRIBUTION WIDTH 13.9 % (11.6-14.6)
[2018-10-06] MEDS: INSULIN LISPRO 100 UNITS/ML SUBCUT SCH ×4 (07:20→20:17)
[2018-10-06 07:44] LABS: CHLORIDE 104 mEq/L (98-107)
[2018-10-06] MEDS: METOPROLOL TARTRATE 50MG TABLET PO SCH ×2 (08:19→20:13)
[2018-10-06] MEDS: DOCUSATE SODIUM 250MG CAPSULE PO SCH ×2 (08:20→16:21)
[2018-10-06] MEDS: CLOPIDOGREL 75MG TABLET PO SCH (08:20)
[2018-10-06] MEDS: FAMOTIDINE 20MG TABLET PO SCH ×2 (08:20→20:13)
[2018-10-06] MEDS: BACITRACIN 15GM TUBE TOP SCH ×2 (08:23→16:22)
[2018-10-06] MEDS: ASPIRIN 81MG TABLET PO SCH (10:14)
[2018-10-06] MEDS ORDERED: POTASSIUM CHLORIDE 20MEQ TABLET SR PO NR (10:45)
[2018-10-06] MEDS ORDERED: FUROSEMIDE 40MG/4ML VIAL IVP NR (10:45)
[2018-10-06] MEDS: LISINOPRIL 5MG TABLET PO SCH (11:24)
[2018-10-06] MEDS: AMLODIPINE 5MG TABLET PO SCH (11:24)
[2018-10-06] MEDS: ATORVASTATIN CALCIUM 40MG TABLET PO SCH (20:13)
[2018-10-07] VITALS (12 sets, daily range): BP systolic 137–166; BP diastolic 85–131
[2018-10-07] MEDS: OXYCODONE HCL/ACETAMINOPHEN 5/325MG TABLET PO PRN ×3 (00:26→10:38)
[2018-10-07] MEDS: IPRATROPIUM/ALBUTEROL 0.5-3(2.5)MG/3ML NEB HHN SCH ×4 (01:40→14:35)
[2018-10-07 06:15] LABS: BASOPHILS % 0.3 % (0.0-2.0); HEMATOCRIT. 27.9 % (36.0-48.0); HEMOGLOBIN. 9.4 g/dL (12.0-16.0); LYMPHOCYTES % 21.3 % (20.0-50.0); MEAN CORPUSCULAR HEMOGLOBIN 29.6 pg (28.0-32.0); MEAN CORPUSCULAR VOLUME 87.5 fL (81.0-99.0); MONOCYTES % 8.3 % (2.0-8.0); NEUTROPHILS % 67.1 % (40.0-76.0); PLATELET 336 x1000/uL (130-400); RED BLOOD CELL COUNT 3.18 mill/uL (4.2-5.4); RED CELL DISTRIBUTION WIDTH 14.1 % (11.6-14.6)
[2018-10-07] MEDS: INSULIN LISPRO 100 UNITS/ML SUBCUT SCH ×3 (06:27→16:09)
[2018-10-07] MEDS: BLOOD SUGAR DIAGNOSTIC STRIP TEST SCH ×3 (06:27→16:09)
[2018-10-07 06:38] LABS: CHLORIDE 105 mEq/L (98-107)
[2018-10-07] MEDS: LISINOPRIL 5MG TABLET PO SCH (08:03)
[2018-10-07] MEDS: DOCUSATE SODIUM 250MG CAPSULE PO SCH ×2 (08:03→16:06)
[2018-10-07] MEDS: AMLODIPINE 5MG TABLET PO SCH (08:03)
[2018-10-07] MEDS: ASPIRIN 81MG TABLET PO SCH (08:03)
[2018-10-07] MEDS: FAMOTIDINE 20MG TABLET PO SCH (08:03)
[2018-10-07] MEDS: CLOPIDOGREL 75MG TABLET PO SCH (08:03)
[2018-10-07] MEDS: METOPROLOL TARTRATE 50MG TABLET PO SCH (08:04)
[2018-10-07] MEDS: BACITRACIN 15GM TUBE TOP SCH ×2 (08:04→16:06)
[2018-10-07] MEDS ORDERED: POTASSIUM CHLORIDE 20MEQ TABLET SR PO NR (11:15)
[2018-10-07] MEDS ORDERED: FUROSEMIDE 40MG/4ML VIAL IVP SCH (11:30)
[2018-10-07] MEDS ORDERED: OXYCODONE HCL/ACETAMINOPHEN 5/325MG TABLET PO PRN (17:45)
[2018-10-07] MEDS ORDERED: LISINOPRIL 10MG TABLET PO SCH (21:00)
== END 2018-10-07 20:20 | DRG 166 ==
LOC: ER 17:39 → 3WST 19:31 → EDBEDREQTM 19:36 → EDBEDREQSVC 19:36 → EDBEDREQ 19:36 → ENRESERV 20:11 → CVICU 09-29 07:19 → 3WST 10-02 17:40
PROVIDERS: ADMIT Internal Medicine; ATTEND Internal Medicine
PROC: 06BQ0ZZ Excision of Left Saphenous Vein, Open Approach (ICD-10-PCS; principal; 2018-09-29)
PROC: 0210093 Bypass Coronary Artery, One Artery from Coronary Artery with Autologous Venous Tissue, Open Approach (ICD-10-PCS; 2018-09-29)
PROC: 03B10ZZ Excision of Left Internal Mammary Artery, Open Approach (ICD-10-PCS; 2018-09-29)
PROC: B246ZZ4 Ultrasonography of Right and Left Heart, Transesophageal (ICD-10-PCS; 2018-09-29)
PROC: 021 Heart and Great Vessels, Bypass (ICD-10-PCS; 2018-09-29)
PROC: 5A1221Z Performance of Cardiac Output, Continuous (ICD-10-PCS; 2018-09-29)
PROC: 0213093 Bypass Coronary Artery, Four or More Arteries from Coronary Artery with Autologous Venous Tissue, Open Approach (ICD-10-PCS; 2018-09-29)
PROC: 30233N1 Transfusion of Nonautologous Red Blood Cells into Peripheral Vein, Percutaneous Approach (ICD-10-PCS; 2018-09-29)
DX: I25.110 Atherosclerotic heart disease of native coronary artery with unstable angina pectoris (principal); J96.90 Respiratory failure, unspecified, unspecified whether with hypoxia or hypercapnia; I47.2 Ventricular tachycardia; J18.9 Pneumonia, unspecified organism; I11.9 Hypertensive heart disease without heart failure; E87.0 Hyperosmolality and hypernatremia; D64.9 Anemia, unspecified; E66.9 Obesity, unspecified; F17.210 Nicotine dependence, cigarettes, uncomplicated; I25.2 Old myocardial infarction; J44.9 Chronic obstructive pulmonary disease, unspecified; Z79.02 Long term (current) use of antithrombotics/antiplatelets; Z82.49 Family history of ischemic heart disease and other diseases of the circulatory system; Z95.5 Presence of coronary angioplasty implant and graft; Z88.5 Allergy status to narcotic agent; Z91.013 Allergy to seafood; Z91.09 Other allergy status, other than to drugs and biological substances; Z90.49 Acquired absence of other specified parts of digestive tract; Z98.891 History of uterine scar from previous surgery; Z68.35 Body mass index [BMI] 35.0-35.9, adult
CPT/HCPCS: 36415; 36569; 36600; 71045; 76937; 80048; 80061; 82375; 82565; 82805; 82962; 83036; 83735; 83880; 84100; 84132; 84443; 84484; 84520; 85027; 85347; 85520; 86850; 86900; 86920; 92610; 93005; 93306; 93880; 94640; 96372; 96374; 97110; 97116; 97163; 97167; 97530; 97535; 99291; A6261; C1725; C1729; C1751; C1893; J0282; J0330; J0461; J0690; J0885; J1100; J1170; J1200; J1250; J1265; J1644; J1650; J1815; J1885; J1940; J2250; J2260; J2270; J2370; J2704; J2720; J3010; J3475; J3480; J3490; J7040; J7050; J7060; J7620; L3908; P9016; P9041; P9047; Q9968

== ENCOUNTER 2018-10-08 10:32 | Emergency (ER) | payer OTHER ==
[~2018-10-08] VITALS: Ht 170.2 cm; Wt 95.0 kg
[2018-10-08] MEDS ORDERED: MORPHINE SULFATE 4 MG/ML CPJ (NOT FOR IM USE) IV ONE (12:15)
[2018-10-08 15:10] VITALS: BP 138/98
== END 2018-10-08 15:45 | disposition home or self-care (01) ==
LOC: ER 10:32
DX: G89.18 Other acute postprocedural pain (principal); I11.9 Hypertensive heart disease without heart failure; Z94.1 Heart transplant status; Z79.82 Long term (current) use of aspirin
CPT/HCPCS: 96374; 99283; J2270

== ENCOUNTER 2018-10-11 17:21 | Emergency (ER) | payer OTHER ==
[~2018-10-11] VITALS: Ht 170.2 cm; Wt 95.0 kg
[2018-10-11] MEDS ORDERED: MORPHINE SULFATE 10 MG/ML CPJ IM ONE (20:15)
[2018-10-11] MEDS ORDERED: ONDANSETRON 4MG ODT PO ONE (20:15)
[2018-10-11 20:55] VITALS: BP 154/80
== END 2018-10-11 20:57 | disposition home or self-care (01) ==
LOC: ER 19:12
DX: R07.9 Chest pain, unspecified (principal); I11.9 Hypertensive heart disease without heart failure; Z88.5 Allergy status to narcotic agent; Z88.8 Allergy status to other drugs, medicaments and biological substances; Z79.82 Long term (current) use of aspirin; Z79.899 Other long term (current) drug therapy; Z87.891 Personal history of nicotine dependence
CPT/HCPCS: 96372; 99283; J2270; Q0162; Z7610